=== PATIENT | female | born 1965 | race Two or more races ===

== ENCOUNTER 2022-02-06 12:29 | Outpatient (CLI) | payer OTHER | END 2022-02-06 12:43 | disposition home or self-care (01) | LOC: RAD 12:29 | PROVIDERS: ATTEND Orthopaedic Surgery | DX: M25.561 Pain in right knee (principal); M25.562 Pain in left knee ==

== ENCOUNTER 2022-02-09 13:40 | Outpatient (CLI) | payer OTHER | END 2022-02-09 13:42 | disposition home or self-care (01) | LOC: MRI 13:40 | PROVIDERS: ATTEND Orthopaedic Surgery | DX: M25.562 Pain in left knee (principal) | CPT/HCPCS: 73721 ==